=== PATIENT | female | born 1945 | race Caucasian/White ===

== ENCOUNTER 2017-05-20 12:58 | Emergency (ER) | payer OTHER, MEDICARE ==
[2017-05-20 13:13] VITALS: RESP 16; TEMP 97.2
--- NOTE | 2017-05-20 15:11 | EDPHY ---
HPI/HX/ROS/PE/MDM Narrative: CHIEF COMPLAINT: Fall HISTORY OF PRESENT ILLNESS: This patient is a 71 year old female with history of ovarian cancer complaining of right-sided rib and knee pain secondary to a fall Saturday, two days ago. She slipped down about four icy steps outside her neighbor's house, striking her right side on the edge of the steps. She was able to get up immediately, but slipped again shortly after, striking her right knee. She did not strike her head or lose consciousness on either of these occasions. Today, her right knee continues to be very painful. She is able to bear weight and ambulate, but with discomfort. Not able to do her regular activities such as bicycle spinning. She has also noted some abnormal stomach discomfort and noted her stomach seems "puffy". She has "not been feeling herself" - restless, and in pain. No upper or lower back pain. She denies any dizziness or lightheadedness. She does take 81mg Aspirin daily. She has not taken any pain medications. No fever, chills, chest pain, shortness of breath, palpitations, vomiting, diarrhea , urinary complaints, headache, lightheadedness. REVIEW OF SYSTEMS: Aside from elements discussed in the HPI, a comprehensive 10-point review of systems was reviewed and is negative. PAST MEDICAL HISTORY: 1. History of ovarian cancer (s/p chemotherapy, Cisplatin, therapies currently completed) 2. Multiple brain aneurysms SOCIAL HISTORY: Friend at bedside. Lives in [place]. PCP Dr. Bone. VITAL SIGNS: Reviewed by me. Normal, no tachycardia. HR 80, RR 16, BP 113/67, SpO2 97% GENERAL: Well-developed, well-nourished, appears uncomfortable when moving around the bed. Complaining of right lateral chest discomfort.. HEENT: Atraumatic. Eyes: No icterus, no injection. Mouth: moist mucous membranes. No erythema or lesions. Neck: supple with no adenopathy. LUNGS: Pain to compression of right ribs. Right lower rib tenderness. No subcutaneous emphysema. No crepitus. Clear to auscultation bilaterally, no wheezes, rhonchi or rales. CARDIAC: Regular rate and rhythm, no rubs, murmurs or gallops. ABDOMEN: Palpable tender fullness to right of epigastrium. Right mid quadrant abdominal tenderness. Soft, bowel sounds normal. BACK: No ecchymoses, nontender. No CVA tenderness. No midline lumbar or thoracic spine tenderness. EXTREMITIES: Ecchymosis to lateral right thigh. Swelling over right patella and laterally. Right knee uncomfortable with bending, especially laterally. NEURO: Alert and oriented, grossly nonfocal. SKIN: Warm and dry, no rash. PSYCHIATRIC: Normal mentation, no agitation. Portions of this note were transcribed by a emergency medical technician. I personally performed a history, physical exam, medical decision making, and confirmed accuracy of information the transcribed note. ED Course: 71 year old female presents with right-sided rib, abdominal, and knee pain secondary to multiple falls on the ice Saturday evening, two days ago. Exam reveals tenderness to the right ribs and a palpable tender fullness to right of epigastrium. There is swelling over and lateral to the right patella and pain with ROM of the knee. Plan for CT abdomen/pelvis, chest x-ray, right knee x- ray. Plan for laboratory studies including CBC, chemistries, coag, UA. Plan to administer 2mg IV morphine for pain control. 16:[address] Green, radiologist. Imaging results show a mild to moderate L2 compression fracture with retropulsion - plan to consult with neurosurgery regarding this. The patient has right 8th and 9th rib fractures as well as a small right-sided pleural effusion. Additionally, there is sludge present in the gallbladder with hydrops. Plan for ultrasound of gallbladder for further evaluation. On re-examination again, the patient has no tenderness to palpation over her lumbar or thoracic spine. 17:[address] Boone, radiologist. Gallbladder hydrops with cholelithiasis, but no evidence of cholecystitis or bile duct dilatation. Consulted with Dr. Zamudio, neurosurgeon space systems operations superintendent. He reviewed the patient 's imaging studies. He does not believe the patient has a significant acute fracture. He will see her in consultation as needed. Reassessed patient. Discussed imaging results. Plan to discharge home in good condition with prescription for Percocet for pain relief. Referral to neurosurgeon and general surgeon given for follow up for her L2 fracture and cholelithiasis respectively. Miguelito wrap applied to the knee. Return precautions discussed. She is comfortable with this plan. MDM: Differential diagnosis of this patient's fall was considered including but not limited to intracranial injury, spinal injury, intrathoracic injury, extremity injury, intra-abdominal injury, lacerations, abrasions, and contusions. - Data Points Imaging Results: Imaging Impressions Abdomen CT 05/20/17 15:13 Impression: 1. L2 mild to moderate compression fracture, with retropulsion, resulting in mild central canal stenosis. Consider DEXA bone scan evaluation for osteoporosis. Consider MRI lumbar spine, if clinically indicated, for neurological changes or central canal stenosis. 2. Gallbladder hydrops, with either gallbladder calculi or tumefactive sludge. Recommend ultrasound gallbladder. 3. Minimal right pleural effusion or hemorrhage, with nondisplaced right 8th and 9th rib fractures. 4. No definite laceration of the liver, spleen, or kidneys. 5. Atherosclerotic aorta, without aneurysm. Findings and recommendations discussed with Emergency Department physician, Nasreen Pretty M.D., at 1615 hours, on May 20, 2017. Final report concurs with initial preliminary interpretation. A test result has been communicated to a licensed care provider and documented in the [facility] Result system on 05/20/2017 16:26, Message ID [id number]. A test result has been communicated to a licensed care provider and documented in the [facility] Result system on 05/20/2017 16:26, Message ID [id number]. E:amm Chest X-Ray 05/20/17 15:13 Impression: 1. No acute posttraumatic findings. 2. Diffuse peribronchial thickening which could be related to bronchitis, with a tiny right pleural effusion. 3. Additional findings as above. Abdomen Ultrasound 05/20/17 16:23 Impression: Gallbladder hydrops with cholelithiasis, but no evidence of cholecystitis or bile duct dilatation. Findings were discussed with Nasreen Pretty MD at 17:23, on 05/20/2017. Knee X-Ray 05/20/17 18:31 Impression: A definite fracture is not identified. Osseous demineralization and degenerative changes are seen. Imaging: Discussed imaging studies w/ machine scallop cutter Radiologist, I viewed and interpreted images myself Laboratory Results: Laboratory Results 05/20/17 15:15 05/20/17 15:15 05/20/17 05/20/17 05/20/17 15:15 15:15 15:15 WBC RBC Hgb POC Hgb Hct POC Hct MCV MCH MCHC RDW Plt Count MPV Neut % (Auto) Lymph % (Auto) Cedar % (Auto) Eos % (Auto) Baso % (Auto) Nucleat RBC Rel Count Absolute Neuts (auto) Absolute Lymphs (auto) Absolute Monos (auto) Absolute Eos (auto) Absolute Basos (auto) Absolute Nucleated RBC Immature Gran % Immature Gran # PT 13.4 SEC SEC (12.0-15.0) INR 1.00 (0.83-1.16) APTT 23.2 SEC SEC (23.0-38.0) POC Sodium Sodium 137 mEq/L mEq/L (135-145) POC Potassium Potassium 4.3 mEq/L mEq/L (3.5-5.2) POC Chloride Chloride 104 mEq/L mEq/L (97-110) Carbon Dioxide 23 mEq/l mEq/l (22-31) Anion Gap 10 mEq/L mEq/L (8-16) POC BUN BUN 29 mg/dL H mg/dL (7-23) Creatinine 0.9 mg/dL mg/dL (0.6-1.0) POC Creatinine Estimated GFR > 60 Glucose 122 mg/dL H mg/dL (70-100) POC Glucose Calcium 9.7 mg/dL mg/dL (8.5-10.4) Total Bilirubin 0.4 mg/dL mg/dL (0.1-1.4) Conjugated Bilirubin 0.3 mg/dL mg/dL (0.0-0.5) Unconjugated Bilirubin 0.1 mg/dL mg/dL (0.0-1.1) AST 24 IU/L IU/L (14-46) ALT 27 IU/L IU/L (9-52) Alkaline Phosphatase 57 IU/L IU/L (38-126) Total Protein 6.5 g/dL g/dL (6.3-8.2) Albumin 3.9 g/dL g/dL (3.5-5.0) Lipase 130 IU/L IU/L (23-300) 05/20/17 05/20/17 15:15 15:12 WBC 7.82 10^3/uL 10^3/uL (3.80-9.50) RBC 3.93 10^6/uL L 10^6/uL (4.18-5.33) Hgb 13.3 g/dL g/dL (12.6-16.3) POC Hgb 13.9 gm/dL gm/dL (12.6-16.3) Hct 39.2 % % (38.0-47.0) POC Hct 41 % % (38-47) MCV 99.7 fL fL (81.5-99.8) MCH 33.8 pg pg (27.9-34.1) MCHC 33.9 g/dL g/dL (32.4-36.7) RDW 14.2 % % (11.5-15.2) Plt Count 166 10^3/uL 10^3/uL (150-400) MPV 9.7 fL fL (8.7-11.7) Neut % (Auto) 84.3 % H % (39.3-74.2) Lymph % (Auto) 9.1 % L % (15.0-45.0) Cedar % (Auto) 5.4 % % (4.5-13.0) Eos % (Auto) 0.5 % L % (0.6-7.6) Baso % (Auto) 0.4 % % (0.3-1.7) Nucleat RBC Rel Count 0.0 % % (0.0-0.2) Absolute Neuts (auto) 6.60 10^3/uL H 10^3/uL (1.70-6.50) Absolute Lymphs (auto) 0.71 10^3/uL L 10^3/uL (1.00-3.00) Absolute Monos (auto) 0.42 10^3/uL 10^3/uL (0.30-0.80) Absolute Eos (auto) 0.04 10^3/uL 10^3/uL (0.03-0.40) Absolute Basos (auto) 0.03 10^3/uL 10^3/uL (0.02-0.10) Absolute Nucleated RBC 0.00 10^3/uL 10^3/uL (0-0.01) Immature Gran % 0.3 % % (0.0-1.1) Immature Gran # 0.02 10^3/uL 10^3/uL (0.00-0.10) PT INR APTT POC Sodium 138 mEq/L mEq/L (135-145) Sodium POC Potassium 3.9 mEq/L mEq/L (3.3-5.0) Potassium POC Chloride 104 mEq/L mEq/L (97-110) Chloride Carbon Dioxide Anion Gap POC BUN 29 mg/dL H mg/dL (7-23) BUN Creatinine POC Creatinine 0.9 mg/dL mg/dL (0.6-1.0) Estimated GFR Glucose POC Glucose 127 mg/dL H mg/dL (70-100) Calcium Total Bilirubin Conjugated Bilirubin Unconjugated Bilirubin AST ALT Alkaline Phosphatase Total Protein Albumin Lipase Medications Given: Discontinued Medications Sodium Chloride (Ns) 1,000 mls @ 0 mls/hr IV ONCE ONE; Wide Open PRN Reason: Protocol Stop: 05/20/17 15:13 Last Admin: 05/20/17 15:24 Dose: 1,000 mls Morphine Sulfate (Morphine) 2 mg IVP EDNOW ONE Stop: 05/20/17 15:14 Last Admin: 05/20/17 15:24 Dose: 2 mg Oxycodone/Acetaminophen (Percocet 5/325mg Prepack#4) 1 btl TAKEHOME EDNOW ONE Stop: 05/20/17 18:33 Last Admin: 05/20/17 19:16 Dose: 1 btl Point of Care Test Results: 05/20/17 15:12 POC Sodium 138 POC Potassium 3.9 POC Chloride 104 POC BUN 29 H POC Creatinine 0.9 POC Glucose 127 H General Time Seen by Provider: 05/20/17 14:56 Initial Vital Signs: Initial Vital Signs Temperature (C) 36.2 C 05/20/17 13:10 Heart Rate 80 05/20/17 13:10 Respiratory Rate 16 05/20/17 13:10 Blood Pressure 113/67 05/20/17 13:10 O2 Sat (%) 97 05/20/17 13:10 O2 Delivery Mode Room Air Allergies/Adverse Reactions: codeine [Codeine] Allergy (Verified 05/20/17 13:09) Vomiting BEE STINGS Allergy (Uncoded 04/18/15 07:24) Home Medications: Medication Instructions Recorded Aspirin EC [Aspirin EC 81 mg (*)] 05/20/17 GABAPENTIN 400 mg PO 05/20/17 HYDROmorphone HCL [Dilaudid 2 mg 2 mg PO Q3-4PRN PRN #20 tab 05/20/17 (*)] Departure - Departure Disposition: Home, Routine, Self-Care Clinical Impression: Multiple fractures of ribs, right side, initial encounter for closed fracture Compression fracture of L2 Qualifiers: Encounter type: initial encounter Fracture type: closed Qualified Code(s): S32.020A - Wedge compression fracture of second lumbar vertebra, initial encounter for closed fracture Cholelithiasis Qualifiers: Cholelithiasis location: gallbladder Cholecystitis presence: without cholecystitis Biliary obstruction: without biliary obstruction Qualified Code(s) : K80.20 - Calculus of gallbladder without cholecystitis without obstruction Condition: Good Instructions: Oxycodone/Acetaminophen (By mouth), Hydromorphone (By mouth), How to Use an Incentive Spirometer (ED), Gallstones (ED), Rib Fracture (ED), Vertebral Compression Fracture (ED), Thoracolumbar Fracture (ED) Additional Instructions: Follow up with your primary doctor within 72 hours for reevaluation. Use incentive spirometer as directed several times daily. Follow up with neurosurgery for continued evaluation and management of your L2 fracture if you develop back pain or if you have further concerns regarding these findings. We have referred you to our neurosurgery specialist space systems operations superintendent. Take Percocet as prescribed as needed for pain relief. Follow up with general surgery for further discussion of your gallbladder stones. Return to the emergency department for fever, worsening pain, shortness of breath or difficulty breathing, worsening abdominal pain, uncontrollable vomiting or diarrhea, blood in urine, difficulty walking, numbness or weakness in your extremities, incontinence, or other concerns. Referrals: Yojana Bone MD [Primary Care Provider] - As per Instructions Ricardo Zamudio MD [Medical Doctor] - As per Instructions Dilip Purvis MD [Medical Doctor] - As per Instructions Prescriptions: HYDROmorphone HCL [Dilaudid 2 mg (*)] 2 mg PO Q3-4PRN PRN #20 tab PRN Reason: Pain, Breakthrough Report Scribed for: Nasreen Pretty Report Scribed by: Hallie Heard Date of Report: 05/20/17 Time of Report: 15:11
[2017-05-20] MEDS ORDERED: NS 1,000 ML IV ONE (15:12)
[2017-05-20] MEDS ORDERED: IOPAMIDOL (ISOVUE-300) 100 ML BTL ONE (15:23)
[2017-05-20 15:35] LABS: PLATELET COUNT 166 10^3/uL (150-400)
[2017-05-20 15:45] LABS: PROTIME(PATIENT) 13.4 SEC (12.0-15.0)
[2017-05-20] MEDS ORDERED: OXYCODONE/APAP 5/325MG PREPACK#4 BTL TAKEHOME ONE (18:32)
[2017-05-20 19:23] VITALS: BP 105/67; PULSE 81; O2SAT 95
== END 2017-05-20 19:23 | disposition home or self-care (01) ==
DX: S22.41XA Multiple fractures of ribs, right side, initial encounter for closed fracture (principal); S32.020A Wedge compression fracture of second lumbar vertebra, initial encounter for closed fracture; K80.20 Calculus of gallbladder without cholecystitis without obstruction; E86.9 Volume depletion, unspecified; Z85.43 Personal history of malignant neoplasm of ovary; W01.198A Fall on same level from slipping, tripping and stumbling with subsequent striking against other object, initial encounter
CPT/HCPCS: 71046; 73564; 74177; 76705; 96374; 99285; Q9967; 82947-QW

== ENCOUNTER → 2018-05-10 | Outpatient (CLI) | payer OTHER, MEDICARE | LOC: GIMAGING 15:59 | PROVIDERS: ATTEND Nurse Practitioner Family | DX: M79.672 Pain in left foot (principal); M20.12 Hallux valgus (acquired), left foot | CPT/HCPCS: 73610-PO; 73630-PO ==